=== PATIENT | female | born 1955 | race Caucasian/White ===

== ENCOUNTER 2016-12-04 16:15 | Emergency (ER) ==
[2016-12-04 16:21] VITALS: BP 140/78; TEMP 97.6; BMI 25.0
--- NOTE | 2016-12-04 17:20 | CT ---
EXAM: CT chest without contrast HISTORY: Pain in the posterior ribs COMPARISON: CT thoracic spine same day TECHNIQUE: Serial axial images of the chest were obtained from the lung apices to the upper abdomen without contrast. These were viewed in multiple planes. FINDINGS: The thyroid is normal. The visualized vessels are unremarkable without aneurysm or stenos is. The heart is normal in size without pericardial effusion. There are no pathologically enlarged mediastinal or hilar lymph nodes. There is a small hiatal hernia. There is no pneumothorax or pleural effusion. There is minimal right basilar atelectasis. The airwa ys are patent. No additional nodule or mass is identified. There is no abnormal ground-glass. There is minimally displaced right lateral fifth rib fracture. There is a nondisplaced posterior rig ht seventh rib fracture. There is no acute compression fracture or subluxation of the thoracic spine . The sternum is normal. The soft tissues in the upper abdomen demonstrate a large low attenuation lesion off the superior pole of the right kidney measuring 7 cm in diameter with Hounsfield units con sistent with a cyst. IMPRESSION: 1. Minimally displaced right lateral fifth rib fracture and nondisplaced posterior right seventh rib fracture. 2. Minimal right basilar atelectasis and no acute cardiopulmonary process. 3. Small hiatal hernia is present. 4. Large right renal cyst.
--- NOTE | 2016-12-04 17:23 | CT ---
Exam: CT of the thoracic spine without intravenous contrast. Comparison: None available. Reason for exam: Trauma. FINDINGS: No acute fracture or listhesis. The vertebral body and intervertebral body disc space hei ghts are well maintained. There is a normal appearing thoracic kyphotic curve. The partially imaged posterior ribs appear unremarkable. There is atelectasis/scarring in both lung bases. Cystic structure in the right upper abdomen is presumably a renal cyst. Please see CT examination performed on the same day for further characterization. Impression: 1. No acute fracture or listhesis in the thoracic spine. 2. Basilar atelectasis or scarring. Report faxed at 1979 hours on 12/04/2016
--- NOTE | 2016-12-04 17:47 | ED.PDOC ---
General ED Provider: Dr. GIRISH MERRILL Chief Complaint: Chest Wall Injury/Pain Stated Complaint: chest wall trauma Time Seen by Physician: 16:20 (fall from horse last week) Mode of Arrival: Walk-In Information Source: Patient Exam Limitations: No limitations Primary Care Provider: FLORENCIO ZAVALA Nursing and Triage Documentation Reviewed and Agree: Yes Trauma/Injury Complaint Exam - Trauma Complaint/Exam Location of Pain or Injury: Reports: Other (chest wall) Mechanism of Injury: Reports: Fall Onset/Duration: 7 days Symptoms Are: Still present Timing of Treatment: Delayed Initial Severity: Moderate Current Severity: Moderate Character: Reports: Aching Aggravating: Reports: None Associated Signs and Symptoms: Denies: LOC, Confusion, Memory loss, Lethargy, Vomiting, Bleeding, Bruising, Swelling, Extremity disuse, Painful respiration, Hoarseness, Dysphagia, Hemoptysis, Significant blood loss Review of Systems - Review Of Systems Constitutional: Reports: No symptoms Eyes: Reports: No symptoms Ears, Nose, Mouth, Throat: Reports: No symptoms Respiratory: Reports: No symptoms Cardiac: Reports: No symptoms GI: Reports: No symptoms : Reports: No symptoms Musculoskeletal: Reports: Other (chest wall pain ts pine) Skin: Reports: No symptoms Neurological: Reports: No symptoms Endocrine: Reports: No symptoms Hematologic/Lymphatic: Reports: No symptoms All Other Systems: Reviewed and Negative Past Medical History - Past Medical History Previously Healthy: Yes Endocrine: Reports: None Cardiovascular: Reports: None Respiratory: Reports: None Hematological: Reports: None Gastrointestinal: Reports: None Genitourinary: Reports: None Neuro/Psych: Reports: None Musculoskeletal: Reports: None Cancer: Reports: None Last Menstrual Period: n/a - Surgical History General Surgical History: Reports: None - Family History Family History: Reports: None - Social History Smoking Status: Former smoker Hx Substance Use: No Alcohol Screening: Occasionally Physical Exam - Physical Exam Appearance: Well-appearing, No pain distress, Well-nourished Eyes: HAIDER, EOMI, Conjunctiva clear ENT: Ears normal, Nose normal, Oropharynx normal Respiratory: Airway patent, Breath sounds clear, Breath sounds equal, Respirations nonlabored Cardiovascular: RRR, Pulses normal, No rub, No murmur GI/: Soft, Nontender, No masses, Bowel sounds normal, No Organomegaly Musculoskeletal: Normal strength, ROM intact, No edema, No calf tenderness Skin: Warm, Dry, Normal color Neurological: Sensation intact, Motor intact, Reflexes intact, Cranial nerves intact, Alert, Oriented Psychiatric: Affect appropriate, Mood appropriate Interpretation - Radiology Interpretation Radiology Interpretation By: Radiologist Radiology Results: Positive (rib fx) Critical Care Note - Critical Care Note Total Time (mins): 0 Course - Course Orders, Labs, Meds: Orders Category Date Time Status CT CHEST W/O CONTRAST Stat RADS 12/04/16 16:[address] THORACIC SPINE W/O CONTRAST Stat RADS 12/04/16 16:37 Completed Vital Signs: Temp Pulse Resp BP Pulse Ox 12/04/16 16:17 97.6 F 75 20 140/78 97 Departure - Departure Time of Disposition: 17:50 Disposition: HOME SELF-CARE Discharge Problem: Chest wall pain, Chest injury, Rib fractures Instructions: Rib Fracture (ED) Condition: Good Pt referred to PMD for follow-up: Yes Additional Instructions: Please call your Family Physician as soon as possible to schedule a follow-up appointment. Allergies/Adverse Reactions: Allergies Sulfa (Sulfonamide Antibiotics) Adverse Reaction (Verified 12/04/16 16:21) Home Medications: Ambulatory Orders Levothyroxine Sodium 25 mcg PO DAILY 12/04/16
== END 2016-12-04 17:56 | disposition home or self-care (01) ==
LOC: ED 16:15
DX: S22.41XA Multiple fractures of ribs, right side, initial encounter for closed fracture (principal); V80.010A Animal-rider injured by fall from or being thrown from horse in noncollision accident, initial encounter
CPT/HCPCS: 99282